=== PATIENT | male | born 1995 | race Caucasian/White ===

== ENCOUNTER 2016-07-11 07:12 | Emergency (ER) | payer OTHER ==
[~2016-07-11] VITALS: Ht 193 cm; Wt 80.7 kg
[~2016-07-11 07:12] MED LIST: ALBU18HF2 ORAL INH; CETI10CA19 PO; FLUT1DIS3 ORAL INH; MONT10TA25 PO; ONDA4TAB7 PO; PROM5SYR PO
[2016-07-11 07:14] VITALS: Ht 193 cm; Wt 80.7 kg
--- OUTSIDE RECORDS SUMMARY | 2016-07-11 07:16 | XMS REPORT | Continuity of Care Document ---
Author Author [facility] Organization [facility] Address Unknown Phone Unavailable Support Name Relationship Address Phone MAYRA HERNÁNDEZ DO Caregiver [address] [place] [address] Unavailable NYASIA WICK Next Of Kin [address] [place] [address] Insurance Providers Guarantor Hi Wick Address [address] [place] [address] Email [email or web address] Payer Private Healthcare [employer] Policy Number [id number] Subscriber's Name BrendonNyasia Relationship 18 Child Group Number [id number] Advance Directives Directive Response Recorded Date/Time Advanced Directives Type None 03/13/16 1:35pm Chief Complaint and Reason for Visit Chief Complaint Throat Pain/Injury Reason for Visit Tonsillopharyngitis Problems Active Problems Medical Problem Onset Date Status Allergic reaction to drug Unknown Acute Allergic reaction to drug Unknown Acute Mild dehydration Unknown Acute Sprain of right shoulder Unknown Acute Sprain of right shoulder Unknown Acute Tonsillopharyngitis Unknown Acute Tonsillopharyngitis Unknown Acute Past Problems Medical Problem Onset Date Crohn's disease Unknown Pharyngitis, acute Unknown Medications Current Home Medications Medication Dose Units Route Directions Days Qty Instructions Start Date Albuterol Sulfate (Ventolin Hfa 90 Mcg/Actuation) 18 Gm Hfa.aer.ad 1 Puff Oral Inhalation Every 4 Hours as needed for Shortness Of Air/Wheezing 03/13/16 Cetirizine Hcl (Zyrtec) 10 Mg Capsule 10 Mg Oral Daily 03/12/16 Fluticasone/Salmeterol (Advair 250-50 Diskus) 1 Disk W/Dev Inhaler 1 Puff Oral Inhalation Resp.tx Twice A Day 06/22/14 Montelukast Sodium 10 Mg Tablet 10 Mg Oral Bedtime 03/13/16 Ondansetron (Zofran Odt) 4 Mg Tab.rapdis 4 Mg Oral Q6h/0300,0900,1500,2100 for Nausea &/Or Vomiting 3 Days 12 Tablet Oral disintegrating tablet Supervising physician Dr. Nikko Arevalo [facility] [address] [facility] [phone] 03/12/16 Promethazine Hcl/Codeine (Prometh-Codein 6.25-10 Mg/5 Ml) 5 Ml Syrup 5 Ml Oral Every Night Prn for Cough/Congestion 10 Days [address] Nikko Arevalo [facility] [address] [phone] 03/12/16 Past Home Medications Medication Directions Ordered Status Amoxicillin 500 Mg Tablet, 500 Mg Oral Three Times A Day 03/12/16 Discontinued Social History Social History Problem Response Recorded Date/Time Onset Date Status Chewing Tobacco Status No 08/19/2013 12:22pm Not Applicable Not Applicable Hx Substance Use No 03/13/2016 2:01pm Not Applicable Not Applicable Hx Alcohol Use No 03/13/2016 2:01pm Not Applicable Not Applicable Has the pt used tobacco in the last 12 months No 05/15/2013 11:47am Not Applicable Not Applicable Tobacco Usage none 08/19/2013 3:50pm Not Applicable Not Applicable Query Response Start Date Stop Date Smoking Status Unknown if ever smoked Hospital Discharge Instructions No hospital discharge instructions. Plan of Care Discharge Date 03/13/16 2:10pm Disposition 01 DISCHARGED HOME, SELF-CARE Condition at Discharge Stable Instructions/Education Provided Sore Throat Prescriptions See Medication Section Referrals VERO MORENO MD Address: [address] [place] [address] [place] [phone] Additional Instructions/Education Take pseudoephedrine (behind pharmacy counter) to dry at nasal secretions as directed. Take jguv-noj-cbxywpr Mucinex (guaifenesin) to help thin secretions as directed. Take wvjf-won-zkeycoa Tylenol extra strength 1 g every 6 hours for pain. You may stop amoxicillin. You may use hccc-mkq-uxuqfgn sore throat spray and lozenges for discomfort. Gargle with 1 teaspoon of salt dissolved into one cup of water 3-4 times daily. Follow treatment plan. If your symptoms are not improving 5 days follow with your PCP for reevaluation, sooner if worsting symptoms. Functional Status No functional status results. Allergies, Adverse Reactions, Alerts Allergen Type Severity Reaction Status Last Updated Orphenadrine Adverse Reaction Severe Became Diaphoretic, Dizzy, SOB, with possible lip swelling Active 03/12/16 Latex Allergy Unknown RASH Active 03/12/16 Immunizations Query Response on File Recorded Date/Time Hx Influenza Vaccination Y fall 201206/22/14 7:15pm Hx Pneumococcal Vaccination No 06/22/14 7:15pm Hx Influenza Vaccination Y fall 201206/22/14 7:15pm Vital Signs Acute Vital Signs Vital Response Date/Time Temperature (Fahrenheit) 99.9 deg F (96.8 - 99.1) 03/13/2016 11:45am Temperature (Calculated Celsius) 37.07024 degrees C (36.0 - 37.3) 03/13/2016 11:45am Pulse Rate (adult) 54 bpm (60 - 100) 03/13/2016 2:23pm Respiratory Rate 18 breaths/min (10 - 20) 03/13/2016 2:23pm O2 Sat by Pulse Oximetry 100 % (90 - 100) 03/13/2016 2:23pm Blood Pressure 133/64 mm Hg 03/13/2016 2:23pm Height (Feet) 6 feet 03/13/2016 11:45am Height (Inches) 4.00 inches 03/13/2016 11:45am Weight (Kilograms) 91.000 kg 03/13/2016 11:45am Body Mass Index (BMI) 24.0 03/13/2016 11:45am Results Laboratory Results Test Name Result Units Flags Reference Collection Date/Time Result Date/ Time Comments Group A Streptococcus Screen NEGATIVE NEGATIVE 03/12/2016 3:55pm 4:13pm Procedures No known history of procedures. Encounters Encounter Location Arrival/Admit Date Discharge/Depart Date Attending Provider Departed Emergency Room [facility] 03/13/16 11:41am 03/13/16 2: 10pm MAYRA HERNÁNDEZ DO Departed Emergency Room [facility] 03/12/16 3:51pm 03/12/16 4: 22pm AUBREY HINTON APRN Recent Diagnosis
--- OUTSIDE RECORDS SUMMARY | 2016-07-11 07:17 | XMS REPORT | Continuity of Care Document ---
Author Author [facility] Organization [facility] Address Unknown Phone Unavailable Support Name Relationship Address Phone BRIEN CASTELLANO MD Caregiver [address] [place] [address] [place] [address] NYASIA WICK Next Of Kin [address] [place] [address] CP Insurance Providers Payer Name Policy Number Subscriber Name Relationship Other A Insurance [id number] Nyasia Wick 18 Child Advance Directives Directive Response Recorded Date/Time Advanced Directives Type None 06/22/14 6:58pm Problems Medical Problems Problem Onset Date Status Tonsillopharyngitis Unknown Active Mild dehydration Unknown Active Tonsillopharyngitis Unknown Active Sprain of right shoulder Unknown Active Sprain of right shoulder Unknown Active Allergic reaction to drug Unknown Active Allergic reaction to drug Unknown Active Medications Medication Dose Route Sig Days/Qty Instructions Order Date Discontinued Date Status Albuterol Sulfate 17 Qty 01/17/13 Active Montelukast Sodium Unknown Dose 06/22/14 Active Fluticasone/Salmeterol 1 Puff ORAL INH RESP.TX TWICE A DAY 06/22/14 Active Cyclobenzaprine HCl 1 Tab PO THREE TIMES A DAY PRN PAIN &/OR SPASM 20 Qty 06/22/14 Active Social History Social History Problem Response Recorded Date/Time Chewing Tobacco Status No 08/19/2013 12:22pm Hx Substance Use No 08/19/2013 12:22pm Hx Alcohol Use No 06/22/2014 7:32pm Has the pt used tobacco in the last 12 months No 05/15/2013 11:47am Tobacco Usage none 08/19/2013 3:50pm Query Response Start Date Stop Date Smoking Status Unknown if ever smoked Hospital Discharge Instructions No hospital discharge instructions. Plan of Care No plan of care. Functional Status Query Response Date Recorded Physical Hygiene Self June 22, 2014 7:32pm Disabilities None June 22, 2014 7:32pm Devices Used None June 22, 2014 7:32pm Dressing Self June 22, 2014 7:32pm Ambulation Self June 22, 2014 7:32pm Diet Self June 22, 2014 7:32pm Mental Status Alert Oriented June 22, 2014 7:32pm Disabilities None June 22, 2014 7:32pm Devices Used None June 22, 2014 7:32pm Physical Hygiene Self June 22, 2014 7:32pm Dressing Self June 22, 2014 7:32pm Ambulation Self June 22, 2014 7:32pm Diet Self June 22, 2014 7:32pm Allergies, Adverse Reactions, Alerts Allergen Type Severity Reaction Status Last Updated Orphenadrine Allergy Unknown Active 06/22/14 Latex Allergy Unknown RASH Active 06/22/14 Immunizations Name Given Type Hx Influenza Vaccination Y FALL 2012 Historical Hx Pneumococcal Vaccination No Historical Hx Influenza Vaccination Y FALL 2012 Historical Vital Signs Acute Vital Signs Vital Response Date/Time Temperature (Fahrenheit) 97.9 deg F (96.8 - 99.1) Temperature (Calculated Celsius) 36.03572 degrees C (36.0 - 37.3) Pulse Rate (adult) 56 bpm (60 - 100) Respiratory Rate 18 breaths/min (10 - 20) O2 Sat by Pulse Oximetry 99 % (90 - 100) Blood Pressure 150/90 mm Hg Height 6 ft 5 in Weight 197 lb Body Mass Index 23.0 kg/m^2 Results Test Source Date Result Interp. Ref. Range Comments Alanine Aminotransferase (ALT/SGPT) August 19, 2013 1:22pm 21 U/L N 21-72 Albumin August 19, 2013 1:22pm 4.4 G/DL N 3.5-5.0 Albumin/Globulin Ratio August 19, 2013 1:22pm 1.4 RATIO N 1.1-2.2 Alkaline Phosphatase August 19, 2013 1:22pm 100 U/L N 38-126 Anion Gap August 19, 2013 1:22pm 12 MEQ/L N 5-15 Aspartate Amino Transf (AST/SGOT) August 19, 2013 1:22pm 20 U/L N 17-59 BUN/Creatinine Ratio August 19, 2013 1:22pm 9 RATIO N 6-26 Band Neutrophils # August 19, 2013 1:22pm 0.1 T/MM3 - Band Neutrophils % August 19, 2013 1:22pm 1.0 % N 0-6 Basophils # (Auto) July 25, 2013 8:45am 0.1 T/MM3 N 0-0.2 Basophils (%) (Auto) July 25, 2013 8:45am 0.6 % N 0-2 Blood Urea Nitrogen August 19, 2013 1:22pm 10.0 MG/DL N 9-20 C-Reactive Protein July 25, 2013 8:45am < 5.0 MG/L 0-9 Calcium Level August 19, 2013 1:22pm 9.6 MG/DL N 8.4-10.2 Calculated Osmolality August 19, 2013 1:22pm 267 MOSM/KG N 261-280 Carbon Dioxide Level August 19, 2013 1:22pm 25 MEQ/L N 22-30 Chloride Level August 19, 2013 1:22pm 102 MEQ/L N 98-107 Creatinine August 19, 2013 1:22pm 1.1 MG/DL N 0.8-1.5 Endomysial IgA Antibody July 25, 2013 8:45am Negative - Negative in normal Individuals. May be negative indermatitis herpatiformis or celiac disease patients adhering to a gluten free diet. Laboratory developed test. Test Performed by: [place] [address] Branch Administrator: Gustavo Aguilera III, M.D. Endomysial IgA Abs performed at [facility], [address] [place] [address] Bending Frame Operator Ale Cabrera MD Eosinophils # (Auto) July 25, 2013 8:45am 0.3 T/MM3 N 0-0.5 Eosinophils # (Manual) August 19, 2013 1:22pm 0.1 T/MM3 N 0-0.5 Eosinophils % (Manual) August 19, 2013 1:22pm 1.0 % N 0-4 Eosinophils (%) (Auto) July 25, 2013 8:45am 3.5 % N 0-4 Erythrocyte Sedimentation Rate July 25, 2013 8:45am 19 MM/HR H 0-15 Free Thyroxine July 25, 2013 8:45am 1.05 NG/DL N 0.78-2.19 Globulin August 19, 2013 1:22pm 3.2 G/DL N 2.4-3.6 Glucose Level August 19, 2013 1:22pm 100 MG/DL N 75-110 Group A Streptococcus Screen August 19, 2013 12:23pm Negative - Strep culture confirmation to follow Hematocrit August 19, 2013 1:22pm 43.5 % N 41-53 Hemoglobin August 19, 2013 1:22pm 15.2 GM/DL N 13.5-17.5 Influenza Type A Antigen August 19, 2013 12:38pm Negative - Negative for Flu A protein antigen. Assay sensitivity is90%. Influenza Type B Antigen August 19, 2013 12:38pm Negative - Negative for Flu B protein antigen. Assay sensitivity is90%. Lymphocytes # (Auto) July 25, 2013 8:45am 1.2 T/MM3 N 1-4.8 Lymphocytes # (Manual) August 19, 2013 1:22pm 0.5 T/MM3 L 1-4.8 Lymphocytes % (Manual) August 19, 2013 1:22pm 4.0 % L 23-45 Lymphocytes (%) (Auto) July 25, 2013 8:45am 14.6 % L 23-45 Mean Corpuscular Hemoglobin August 19, 2013 1:22pm 29.4 UUG N 26-34 Mean Corpuscular Hemoglobin Concent August 19, 2013 1:22pm 34.9 GM/DL N 31- 37 Mean Corpuscular Volume August 19, 2013 1:22pm 84.1 UM3 N 80-100 Mean Platelet Volume August 19, 2013 1:22pm 9.5 UM3 N 9.4-12.4 Monocytes # (Auto) July 25, 2013 8:45am 0.8 T/MM3 N 0-0.8 Monocytes # (Manual) August 19, 2013 1:22pm 0.4 T/MM3 N 0-0.8 Monocytes % (Manual) August 19, 2013 1:22pm 3.0 % N 0-9.0 Monocytes (%) (Auto) July 25, 2013 8:45am 9.3 % H 0-9.0 Monoscreen August 19, 2013 1:23pm Negative - Neutrophils # (Auto) July 25, 2013 8:45am 5.9 T/MM3 N 1.8-7.7 Neutrophils # (Manual) August 19, 2013 1:22pm 11.6 T/MM3 H 1.8-7.7 Neutrophils % (Manual) August 19, 2013 1:22pm 91.0 % H 33-66 Neutrophils (%) (Auto) July 25, 2013 8:45am 71.8 % H 33-66 Platelet Count August 19, 2013 1:22pm 260 T/MM3 N 130-400 Potassium Level August 19, 2013 1:22pm 3.4 MEQ/L L 3.6-5 RDW Standard Deviation August 19, 2013 1:22pm 36.8 FL L 36.9-50.2 Red Blood Count August 19, 2013 1:22pm 5.17 M/MM3 N 4.50-5.90 Sodium Level August 19, 2013 1:22pm 139 MEQ/L N 134-144 Stool Occult Blood July 29, 2013 10:20am Negative - Stool for White Cells July 29, 2013 10:20am Negative - Thyroid Stimulating Hormone (TSH) July 25, 2013 8:45am 1.32 MIU/L N 0.47-4.68 Total Bilirubin August 19, 2013 1:22pm 0.80 MG/DL N 0.20-1.30 Total Protein August 19, 2013 1:22pm 7.6 G/DL N 6.3-8.2 Urine Bacteria August 19, 2013 2:50pm Trace H - Has specimen been collected/obtained? Y Urine Bilirubin August 19, 2013 2:50pm 1+ H - ICTO TEST NEG LB--- 1514 --- UBILI previously reported as: 1+ H Urine Blood August 19, 2013 2:50pm Trace-lysed H - Has specimen been collected/obtained? Y Urine Collection Type August 19, 2013 2:50pm Voided-not cc-midstr - Has specimen been collected/obtained? Y Urine Color August 19, 2013 2:50pm Yellow - Has specimen been collected/ obtained? Y Urine Glucose (UA) August 19, 2013 2:50pm Negative - Has specimen been collected/obtained? Y Urine Ketones August 19, 2013 2:50pm 1+ H - Has specimen been collected/ obtained? Y Urine Leukocyte Esterase August 19, 2013 2:50pm Negative - Has specimen been collected/obtained? Y Urine Mucus August 19, 2013 2:50pm Present - Has specimen been collected /obtained? Y Urine Nitrite August 19, 2013 2:50pm Negative - Has specimen been collected/obtained? Y Urine Protein August 19, 2013 2:50pm 1+ H - Has specimen been collected/ obtained? Y Urine RBC August 19, 2013 2:50pm 0-1 /HPF - Has specimen been collected/ obtained? Y Urine Specific [place] August 19, 2013 2:50pm 1.020 - Has specimen been collected/obtained? Y Urine Turbidity August 19, 2013 2:50pm Sl cloudy - Has specimen been collected/obtained? Y Urine Urobilinogen August 19, 2013 2:50pm 1.0 EU/DL - Has specimen been collected/obtained? Y Urine WBC August 19, 2013 2:50pm 0-1 /HPF - Has specimen been collected/ obtained? Y Urine pH August 19, 2013 2:50pm 6.0 - Has specimen been collected/ obtained? Y White Blood Count August 19, 2013 1:22pm 12.7 T/MM3 H 4.5-11.0 Chemistry Specimen Hemolysis August 19, 2013 1:22pm < 15 0-25 0-25: No Hemolysis.26-70: Slight Hemolysis - can falsely elevate K and Urine Protein. 71-285: Moderate Hemolysis - can falsely elevate K, Troponin I, CA 19-9, PTH, CSF GLucose, and Urine Protein, and can falsely decrease Phenytoin. 286-999: Gross Hemolysis - can falsely elevate K, Troponin I, CA 19-9, PTH, CSF Glucose, and Urine Protine, and can falsely decrease Phenytoin. Recommend specimen recollection. Urinalysis Comment July 25, 2013 8:45am Microscopic not ind. - Lab Scanned Report July 29, 2013 2:29pm LAB TEST FORM REQUEST [id number] - Turbidity August 19, 2013 1:22pm < 20 0-20 Glomerular Filtration Rate Calc August 19, 2013 1:22pm 86 - Immature Granulocyte # (Auto) July 25, 2013 8:45am 0.02 T/MM3 N 0.00- 0.03 Immature Granulocyte % (Auto) July 25, 2013 8:45am 0.2 % N 0.0-0.5 Icterus Index August 19, 2013 1:22pm < 2 0-7 C. difficile Toxin B Gene (PCR) July 29, 2013 10:20am Negative - If Toxin A is clinically indicated, treat accordingly. Stool Culture Stool July 29, 2013 10:20am Group A Streptococcus Culture Throat August 19, 2013 12:38pm Urine Culture Urine, Clean Catch-Midstream July 25, 2013 8:45am Procedures No known history of procedures. Encounters Encounter Location Date/Time Departed Emergency Room [facility] 06/22/14 6:49pm Recent Diagnosis
[2016-07-11] MEDS ORDERED: NORMAL SALINE 1,000 ML IV ONE (07:34)
--- OUTSIDE RECORDS SUMMARY | 2016-07-11 07:34 | XMS REPORT | Continuity of Care Document ---
Author Author [facility] Organization [facility] Address Unknown Phone Unavailable Support Name Relationship Address Phone BRIEN CASTELLANO MD Caregiver [address] [place] [address] [place] [address] NYASIA WICK Next Of Kin [address] [place] [address] CP Insurance Providers Payer Name Policy Number Subscriber Name Relationship Other A Insurance [id number] Nyasia Wick 18 Child Advance Directives Directive [...] F (96.8 - 99.1) Temperature (Calculated Celsius) 36.36027 degrees C (36.0 - 37.3) Pulse Rate [...] diet. Laboratory developed test. Test Performed by: [place] [address] Interactive Media Specialist: Gustavo Aguilera III, M.D. Endomysial IgA Abs performed at [facility], [address] [place] [address] Content Strategist Ale Cabrera MD Eosinophils # (Auto) July [...] specimen been collected/ obtained? Y Urine Specific [place] August 19, 2013 2:50pm 1.020 - Has [...] 29, 2013 2:29pm LAB TEST FORM REQUEST [id number] - Turbidity August 19, 2013 1:22pm < [...] Encounters Encounter Location Date/Time Departed Emergency Room [facility] 06/22/14 6:49pm Recent Diagnosis
--- NOTE | 2016-07-11 07:40 | NUR ---
DR Pao CABRERA [place]
[2016-07-11] MEDS ORDERED: ONDANSETRON ODT 4 MG TAB SL ONE (07:45)
[2016-07-11] MEDS ORDERED: ONDANSETRON 4mg/2ml INJECTION IV ONE (08:00)
[2016-07-11] MEDS ORDERED: MORPHINE SULFATE 4 MG SYRINGE IV ONE (08:00)
[2016-07-11 08:22] LABS: BASOPHILS # (AUTO) 0.1 T/MM3 (0-0.2); BASOPHILS % (AUTO) 1.2 % (0-2); EOSINOPHILS # (AUTO) 0.1 T/MM3 (0-0.5); EOSINOPHILS % (AUTO) 2.6 % (0-4); HCT - HEMATOCRIT 47.3 % (41-53); LYMPHOCYTES # (AUTO) 1.6 T/MM3 (1-4.8); LYMPHOCYTES % (AUTO) 31.9 % (23-45); MEAN CORPUSCULAR HGB 29.7 UUG (26-34); MEAN CORPUSCULAR HGB CONC(MCHC 33.8 GM/DL (31-37); MEAN CORPUSCULAR VOLUME 87.9 UM3 (80-100); MEAN PLATELET VOLUME 9.7 UM3 (9.4-12.4); MONOCYTES # (AUTO) 0.4 T/MM3 (0-0.8); MONOCYTES % (AUTO) 8.5 % (0-9.0); NEUTROPHILS #(AUTO)-ABSOLUTE 2.7 T/MM3 (1.8-7.7); NEUTROPHILS % (AUTO) 55.8 % (33-66); RED BLOOD COUNT 5.38 M/MM3 (4.50-5.90); WBC - WHITE BLOOD COUNT 4.9 T/MM3 (4.5-11.0)
[2016-07-11 08:27] LABS: ALBUMIN 4.4 G/DL (3.5-5.0); ALBUMIN/GLOBULIN RATIO 1.5 RATIO (1.1-2.2); ALKALINE PHOSPHATASE 53 U/L (38-126); ALT (SGPT) 25 U/L (21-72); ANION GAP 11 MEQ/L (5-15); AST (SGOT) 28 U/L (17-59); BUN/CREATININE RATIO 12 RATIO (6-26); CALCIUM 9.7 MG/DL (8.4-10.2); CHLORIDE 104 MEQ/L (98-107); CO2 - CARBON DIOXIDE 29 MEQ/L (22-30); GLOMERULAR FILTRATION RATE 93; GLUCOSE 94 MG/DL (75-110); LIPASE 31 U/L (23-300); SODIUM 144 MEQ/L (134-144); TOTAL PROTEIN 7.4 G/DL (6.3-8.2)
--- NOTE | 2016-07-11 08:36 | ERPDOC ---
Departure Disposition Decision Date: Jul 11, 2016 Disposition Decision Time: 09:30 Disposition: 01 DISCHARGED HOME, SELF-CARE Impression Impression Impression: Primary Impression: Abdominal pain Abdominal location: upper abdomen, unspecified Qualified Codes: R10.10 - Upper abdominal pain, unspecified Additional Impressions: Peptic disease Crohns disease Gastrointestinal tract location: small intestine Digestive disease complication type: with rectal bleeding Qualified Codes: K50.011 - Crohn's disease of small intestine with rectal bleeding Severity: Moderate Condition: Stable Seen By: Physician only Patient Instructions: Diet for Stomach Ulcers and Gastritis (ED), Peptic Ulcer (ED) Problems/Meds/Labs Reviewed?: Yes Medications reviewed and manag: Yes Additional Instructions: Start taking prilosec over the counter (omeprazole) one cap daily at bedtime and Pepcid (famotidine) or Zantac (ranitidine) two tabs daily in the morning to decrease the stomach acid. Your labs look good and the inflammation markers are not elevated, suggesting that this is more likely due to petic ulcer type problems than the Crohn's disease. Watch your diet carefully. Take Ondansetron as needed for nausea and Haines as needed for severe pain, Tylenol for mild to moderate pain. Follow up with your doctor in one week or earlier if not getting better. Follow up care ordered?: Yes Mental Status: Alert, Oriented Scripts Hydrocodone/Acetaminophen (Haines 5-325 Tablet) 5-325 Tablet 1-2 TAB PO Q6H Y for PAIN, #20 TAB 0 Refills Prov: MAHI CABRERA MD 07/11/16 Ondansetron HCl (Ondansetron HCl) 4 Mg Tablet 1 TAB PO Q6HPRN, #10 TAB 1 Refill Prov: MAHI CABRERA MD 07/11/16 HPI - Abdominal Pain General Chief Complaint: Abdominal Pain Stated Complaint: STOMACHE PAIN, BLOOD IN VOMIT/STOOL Time Seen by Provider: 07:25 Source: patient, RN notes reviewed, old records History/Exam Limitations: no limitations HPI - Abdominal Pain Initial Comments This patient with known Crohn's disease comes in complaining of an exacerbation. He was on Spring Break last week and although he tried to watch his diet, it was different than usual and he thinks that is what upset things. Yesterday the pain increased markedly and he started seeing some blood in his stools (streaks) which he has seen only one other time since he was diagnosed. His stools are now loose/diarrhea and the pain decreases with defecation. He has vomited x 5 and is seeing a little blood in the emesis as well. He feels like he is getting dehydrated as he is now lightheaded as well. He also has a history of peptic ulcers and doesn't know if that is aggravated as well. He uses a combination of cocunet oil mixed with honey to try to soothe his GI tract. Occurred At: other Onset: Gradual Duration: other Pain Scale: Now: 7/10 Quality: burning Location: epigastric Radiation: no radiation Activities at Onset: during/after eating Modifying Factors: WORSE WITH: eating, vomiting Associated Symptoms: heartburn, nausea/vomiting, other (lightheaded) Hx of Similar Symptoms: Yes Allergies: Coded Allergies: latex (Verified Allergy, Unknown, RASH, 07/11/16) orphenadrine (Verified Adverse Reaction, Severe, Became Diaphoretic, Dizzy , SOB, with possible lip swelling, 07/11/16) Past History Past Medical History ENMT: allergies Respiratory: asthma GI: GERD, crohn's, ulcers Neurological: concussion Surgical History General: appendix, colonoscopy, tonsils Joint: knee Family History Family PMH: FOUND: crohn's Vaccines Hx Influenza Vaccination: Yes (FALL 2012) Hx Pneumococcal Vaccination: No Social History Smoking Status: Unknown if ever smoked Substance Use Type: does not use Alcohol Intake: occasionally Current Occupational Status: student Record Review Pertinent history updated: Yes Review of Systems Constitutional Constitutional: appetite decrease, dizziness, DENIES: chills, fever, weakness Eyes General: DENIES: pain Lids/Accessories: DENIES: erythema Vision: DENIES: blurring ENMT Ears: DENIES: pain Hearing: DENIES: hearing loss Balance: DENIES: vertigo Sinuses: DENIES: congestion, rhinorrhea Mouth/Throat: DENIES: sore throat Teeth: DENIES: pain Cardiovascular Cardiac: DENIES: chest pain Rhythm/Rate: DENIES: palpitations Vascular: DENIES: pedal edema, unilateral swelling Pulmonary Respiratory: DENIES: cough, dyspnea, sputum GI Upper Abdomen: nausea, pain, see HPI, vomiting Lower Abdomen: diarrhea, pain, see HPI General: DENIES: dysuria, hematuria Male: DENIES: hesitancy Musculoskeletal General: DENIES: joint pain, pain Integumentary Skin: DENIES: itching, rash Neurological General: DENIES: headache, memory disturbances, seizures, syncope Psychiatric Psychiatric: DENIES: anxiety, depression Endocrine Endocrine: DENIES: heat/cold intolerance Hematologic/Lymphatic Hematologic/Lymphatic: DENIES: anemia, easy bruising Allergic/Immunological Allergic/Immunoligical: DENIES: hives All other Systems All Other Systems: Reviewed and Negative Physical Exam General General Nourishment: well nourished, well developed, appears stated age, adult General Body Habitus: well groomed Vitals and Pain First Documented Vital Signs Date Time Temp Pulse Resp B/P Pulse Ox O2 Delivery O2 Flow Rate FiO2 07/11/16 07:14 97.7 74 16 129/75 100 Room Air Weight: Kilograms: 80.700 Height (feet): 6 Height (inches): 4.00 Triage Pain Scale: RN VS reviewed by Provider: Yes Comments mild distress Normal Exams: Head: Normocephalic w/o trauma Eyes: Pupils are PERRLA w/ EOMI, No scleral icterus, irritation, or foreign bodies noted ENMT: No facial trauma, nasal exudates, pharyngeal erythema, or exudates are noted Dental: No fractured, loose, or missing teeth noted Neck: Full range of motion, without adenopathy, JVD, bruits or thyromegaly Chest/Resp: Clear all mccain, with good airflow, and symmetry bilaterally CV: Regular rate and rhythm, without murmur or gallop, Pulses 2+ all extremities, capillary refill, <2 seconds all ext., no pedal edema noted Musculoskeletal: No tenderness, or deformity noted, good range of motion, all extremities Integumentary: No rashes, hives, or bruising noted, hair and nails, without abnormality Neurologic: Patient is alert, and oriented, cranial nerves, motor/sensory/ cerebellar, exams w/o gross deficits, to observation Psychiatric: Patient exhibits, appropriate attention, emotion and affect Abdomen (brief) Abdominal Brief: FOUND: soft, tender, NOT FOUND: distended Comments decreased bowel sounds, most tender in epigastric and LUQ, no rebound, mild voluntary guarding, no mass Differential Diagnoses Considering: Crohn's, Gastroenteritis, GERD, Ileus, Ulcer Progress Results/Orders Orders Lab Results Medications Current ED Medications Sodium Chloride (Normal Saline IV) 1,000 ml @ 0 mls/hr Q0M ONCE IV Last administered on 07/11/16 08:04; Start 07/11/16 at 07:34; Stop 07/11/16 at 07:36 ; Status DC Ondansetron HCl (Zofran Odt) 4 mg O ONCE SL ; Start 07/11/16 at 07:45; Stop at 07:52; Status DC Ondansetron HCl (Zofran) 4 mg O ONCE IV Last administered on 07/11/16 08:04; Start 07/11/16 at 08:00; Stop 07/11/16 at 08:01; Status DC Morphine Sulfate (Morphine) 4 mg O ONCE IV Last administered on 07/11/16 08: 05; Start 07/11/16 at 08:00; Stop 07/11/16 at 08:01; Status DC Pantoprazole Sodium (Protonix Iv) 40 mg O ONCE IV Last administered on 08:43; Start 07/11/16 at 08:45; Stop 07/11/16 at 08:46; Status DC Promethazine HCl (Phenergan) 25 mg O ONCE IV ; Start 07/11/16 at 09:00; Stop at 09:03; Status DC Prochlorperazine Edisylate (Compazine) 10 mg O ONCE IV Last administered on 09:07; Start 07/11/16 at 09:15; Stop 07/11/16 at 09:16; Status DC Progress Progress Patient given IV to rehydrate. Antiemetic and Morphine for raquel which went from 7 /10 to 5/10. Added Pantoprazole which helped. He ad recurrence of nausea, different antiemetic given. Patient's labs were noted to be essentially normal, including the CRP, indicating very little inflammation. Could be more likely to be GERD or PUD than his Crohn's with the low CRP. Will have him follow with PCP and take antiemetics and H2 yevgeniy. MAHI CABRERA MD Jul 11, 2016 08:36 Glucose Level 94MG/DL Calculated Osmolality 277MOSM/KG Calcium Level 9.7MG/DL Total Bilirubin 1.00MG/DL Icterus Index < 2 Aspartate Amino Transf (AST/SGOT) 28U/L Alanine Aminotransferase (ALT/SGPT) 25U/L Alkaline Phosphatase 53U/L C-Reactive Protein < 5.0MG/L Total Protein 7.4G/DL Albumin 4.4G/DL Globulin 3.0G/DL Albumin/Globulin Ratio 1.5RATIO Lipase 31U/L Chemistry Specimen Hemolysis 18 Medications Current ED Medications Sodium Chloride (Normal Saline IV) 1,000 ml @ 0 mls/hr Q0M ONCE IV Last administered on 07/11/16 08:04; Start 07/11/16 at 07:34; Stop 07/11/16 at 07:36 ; Status DC Ondansetron HCl (Zofran Odt) 4 mg O ONCE SL ; Start 07/11/16 at 07:45; Stop at 07:52; Status DC Ondansetron HCl (Zofran) 4 mg O ONCE IV Last administered on 07/11/16 08:04; Start 07/11/16 at 08:00; Stop 07/11/16 at 08:01; Status DC Morphine Sulfate (Morphine) 4 mg O ONCE IV Last administered on 07/11/16 08: 05; Start 07/11/16 at 08:00; Stop 07/11/16 at 08:01; Status DC Pantoprazole Sodium (Protonix Iv) 40 mg O ONCE IV Last administered on 08:43; Start 07/11/16 at 08:45; Stop 07/11/16 at 08:46; Status DC Promethazine HCl (Phenergan) 25 mg O ONCE IV ; Start 07/11/16 at 09:00; Stop at 09:03; Status DC Prochlorperazine Edisylate (Compazine) 10 mg O ONCE IV Last administered on 09:07; Start 07/11/16 at 09:15; Stop 07/11/16 at 09:16; Status DC MAHI CABRERA MD Jul 11, 2016 08:36
--- NOTE | 2016-07-11 08:38 | NUR ---
PAIN PT SAYS HE STILL HAS BURNING IN HIS STOMACH
[2016-07-11] MEDS ORDERED: PANTOPRAZOLE 40mg INJECTION IV ONE (08:45)
--- NOTE | 2016-07-11 08:53 | NUR ---
NAUSEA SAYS NAUSEA WORSE. VOMITED SM AMT MUCUS LIKE EMESIS
[2016-07-11] MEDS ORDERED: PROMETHAZINE 25 MG INJECTION IV ONE (09:00)
[2016-07-11] MEDS ORDERED: PROCHLORPERAZINE 10mg/2ml INJECTION IV ONE (09:15)
--- NOTE | 2016-07-11 09:20 | NUR ---
NAUSEA IMPROVED SLIGHTLY
[2016-07-11] MEDS ORDERED: ONDA-55 PO (09:47)
[2016-07-11] MEDS ORDERED: HYDR-4246 PO (09:47)
[2016-07-11 09:55] VITALS: BP 127/67; PULSE 59; RESP 16; TEMP 97.7; O2SAT 100
--- NOTE | 2016-07-11 09:55 | NUR ---
DISMISSAL PT IS FEELING BETTER. WANTS TO GO HOME. INSTRUCTIONS REVIEWED WITH HIM. HE VERBALIZES UNDERSTANDING. DISCHARGED AMB
== END 2016-07-11 09:55 | disposition home or self-care (01) ==
LOC: ED 07:12
DX: K50.011 Crohn's disease of small intestine with rectal bleeding (principal); K30 Functional dyspepsia
CPT/HCPCS: 80053; 83690; 85025; 86140; 96361; 96374; 96375; 99284; C9113; J0780; J2405; J7030